=== PATIENT | male | born 1960 | race Caucasian/White ===

== ENCOUNTER 2025-02-03 15:44 | Inpatient (IN) | payer MEDICARE, OTHER ==
[~2025-02-03] VITALS: Ht 162.6 cm; Wt 56.7 kg
[2025-02-03] MEDS ORDERED: CHLO25TA13 PO (16:16)
[2025-02-03 16:22] LABS: PLATELET COUNT (AUTO) 325 K/uL (150-450); RED BLOOD CELL COUNT(AUTO) 3.98 MIL/uL (4.5-6.0); RED CELL DISTRIBUTION WIDTH 14.7 % (11.5-15.0); WHITE BLOOD COUNT (AUTO) 5.1 K/uL (4.3-11.0)
[2025-02-03 16:27] LABS: CALCIUM, SERUM 9.0 mg/dL (8.5-10.1); CREATININE 1.0 mg/dL (0.6-1.3); SODIUM SERUM 140 mmol/L (136-145); UREA NITROGEN, BLOOD 18 mg/dL (7-18)
[2025-02-03 16:34] LABS: ASPARTATE AMINOTRANSFERASE 21 U/L (15-37); TOTAL PROTEIN, SERUM 6.9 g/dL (6.4-8.2)
[2025-02-03 16:48] LABS: ALCOHOL, BLOOD < 3 mg/dL (0-10)
[2025-02-03 18:41] LABS: APPEARANCE,URINE CLOUDY (CLEAR); BLOOD, URINE NEGATIVE Ery/uL (NEGATIVE); LEUKOCYTE ESTERASE ,URINE 3+ (NEGATIVE); NITRITE, URINE POSITIVE (NEGATIVE); UGLUCOSE NEGATIVE (NEGATIVE)
[2025-02-03 18:50] LABS: BARBITURATE, URINE NEGATIVE (NEGATIVE); BENZODIAZEPINE, URINE NEGATIVE (NEGATIVE); CANNABINOID, URINE NEGATIVE (NEGATIVE); COCCAINE, URINE NEGATIVE (NEGATIVE); OPIATE, URINE NEGATIVE (NEGATIVE)
[2025-02-03 18:57] LABS: ADD URINE CULTURE YES
[2025-02-03 18:58] LABS: SQUAMOUS EPITHELIAL CELL,UR 0-2 /HPF (None Seen); URINE AMORPHOUS URATE Moderate /HPF (None Seen)
[2025-02-03 18:59] LABS: AMPHETAMINE, URINE POSITIVE (NEGATIVE)
[2025-02-03] MEDS ORDERED: CIPR500S2 PO (22:28)
[2025-02-03] MEDS ORDERED: CLOT15CR27 TP (22:29)
[2025-02-03] MEDS ORDERED: TEMAZEPAM 7.5 MG CAPSULE PO PRN (22:30)
[2025-02-03] MEDS ORDERED: MAGNESIUM HYDROXIDE 30 ML UDC PO PRN (22:30)
[2025-02-03] MEDS ORDERED: MAG HYDROX/AL HYDROX/SIMETH 30 ML UDC PO PRN (22:30)
[2025-02-03] MEDS ORDERED: LORAZEPAM 1 MG TABLET PO PRN (22:30)
[2025-02-03] MEDS ORDERED: FOLI0.4T6 PO (22:30)
[2025-02-03] MEDS ORDERED: MULT-1119 PO (22:31)
[2025-02-03] MEDS ORDERED: LORA-259 PO (22:31)
[2025-02-03] MEDS ORDERED: RISP1TAB97 PO (22:32)
[2025-02-03] MEDS ORDERED: THIA100T74 PO (22:33)
[2025-02-03] MEDS ORDERED: TRIA60LO8 TP (22:34)
[2025-02-03] MEDS: BLOOD SUGAR DIAGNOSTIC 1 EACH STRIP IN ONE (22:50)
[2025-02-03 23:41] VITALS: BP 123/69; TEMP 98; O2SAT 98
[2025-02-04 08:00] VITALS: BP 119/72; TEMP 98.2; O2SAT 97
[2025-02-04] MEDS: FOLIC ACID 1 MG TABLET PO SCH (08:14)
[2025-02-04] MEDS: MULTIVIT W/MINERALS 1 TAB TABLET PO SCH (08:14)
[2025-02-04] MEDS: NICOTINE PATCH (21MG) 21 MG PATCH.TD24 TD SCH (08:14)
[2025-02-04] MEDS: THIAMINE HCL 100 MG TABLET PO SCH (08:14)
[2025-02-04] MEDS: CEPHALEXIN MONOHYDRATE 500 MG CAPSULE PO SCH (10:39)
[2025-02-04 16:00] VITALS: BP 109/62; TEMP 97.5; O2SAT 100
[2025-02-04] MEDS ORDERED: HYDROCORTISONE 1% CREAM 28.35 GM TUBE TP PRN ×2 (17:00→19:00)
[2025-02-04 19:50] VITALS: BP 128/71; TEMP 98.2; O2SAT 99
[2025-02-05 08:02] VITALS: BP 106/53; TEMP 97.9; O2SAT 98
[2025-02-05 08:59] LABS: CALCIUM, SERUM 8.8 mg/dL (8.5-10.1); CREATININE 0.9 mg/dL (0.6-1.3); SODIUM SERUM 137.0 mmol/L (136-145); UREA NITROGEN, BLOOD 25.0 mg/dL (7-18)
[2025-02-05 09:36] LABS: PLATELET COUNT (AUTO) 337 K/uL (150-450); RED BLOOD CELL COUNT(AUTO) 4.44 MIL/uL (4.5-6.0); RED CELL DISTRIBUTION WIDTH 14.3 % (11.5-15.0); WHITE BLOOD COUNT (AUTO) 8.1 K/uL (4.3-11.0)
[2025-02-05 12:09] LABS: LDL 123.0 mg/dL (0-99)
[2025-02-05 13:41] LABS: EOSINOPHILS % (MANUAL) 11 % (0-4); LYMPHOCYTES % (MANUAL) 14 % (16-48); MONOCYTES % (MANUAL) 3 % (0-11.0); NEUTROPHILS % (MANUAL) 72 (42-76); PLATELET ESTIMATE ADEQUATE
[2025-02-05 15:55] VITALS: BP 124/67; TEMP 97.3; O2SAT 97
[2025-02-05 20:36] VITALS: BP 124/67; TEMP 97.5; O2SAT 98
[2025-02-06 08:00] VITALS: BP 134/76; TEMP 98.8; O2SAT 98
[2025-02-06] MEDS: HYDROCORTISONE 1% CREAM 28.35 GM TUBE TP PRN (10:09)
[2025-02-06 16:00] VITALS: BP 119/74; TEMP 98; O2SAT 98
[2025-02-06 20:06] VITALS: BP 122/69; TEMP 98; O2SAT 98
[2025-02-06] MEDS: QUETIAPINE FUMARATE 25 MG TABLET PO SCH (21:14)
[2025-02-07 08:28] VITALS: BP 118/72; TEMP 98; O2SAT 100
[2025-02-07] MEDS: QUETIAPINE FUMARATE 25 MG TABLET PO SCH (08:46)
[2025-02-07] MEDS: IVERMECTIN 3 MG TABLET PO ONE (10:27)
[2025-02-07] MEDS: PERMETHRIN 5% CRM 60 GM TUBE TP ONE (10:27)
[2025-02-07 16:00] VITALS: BP 117/70; TEMP 97.8; O2SAT 97
[2025-02-07 20:24] VITALS: BP 120/67; TEMP 97.8; O2SAT 97
[2025-02-08 08:34] VITALS: BP 116/73; TEMP 97.1; O2SAT 99
[2025-02-08 16:00] VITALS: BP 119/79; TEMP 97.7; O2SAT 95
[2025-02-08 19:57] VITALS: BP 123/96; TEMP 98.2; O2SAT 97
[2025-02-09 08:00] VITALS: BP 137/85; TEMP 97.8; O2SAT 99
[2025-02-09 16:00] VITALS: BP 108/85; TEMP 98.6; O2SAT 98
[2025-02-09 20:03] VITALS: BP 114/71; TEMP 98.3; O2SAT 98
[2025-02-10 08:00] VITALS: BP_SYST 118; BP_SYST 119; BP_DIAS 75; BP_DIAS 87; TEMP 97.7; TEMP 98.1; O2SAT 96; O2SAT 98
[2025-02-10] MEDS: QUETIAPINE FUMARATE 25 MG TABLET PO SCH (08:23)
[2025-02-10] MEDS: LORAZEPAM 1 MG TABLET PO PRN (13:40)
[2025-02-10 16:00] VITALS: BP 136/70; TEMP 97.7; O2SAT 98
[2025-02-10 20:45] VITALS: BP 109/87; TEMP 98.3; O2SAT 98
[2025-02-11 08:00] VITALS: BP 131/83; TEMP 98.1; O2SAT 100
[2025-02-11 16:00] VITALS: BP 123/73; TEMP 97.5; O2SAT 98
[2025-02-11 20:21] VITALS: BP 139/78; TEMP 97.9; O2SAT 98
[2025-02-12 08:04] VITALS: BP 150/74; TEMP 97.8; O2SAT 98
[2025-02-12 16:10] VITALS: BP 122/76; TEMP 97.8; O2SAT 98
[2025-02-12 20:55] VITALS: BP 130/77; TEMP 97.9; O2SAT 99
[2025-02-12] MEDS: QUETIAPINE FUMARATE 25 MG TABLET PO SCH (21:29)
[2025-02-13 08:00] VITALS: BP 119/73; TEMP 98; O2SAT 99
[2025-02-13 16:00] VITALS: BP 129/78; TEMP 98.2; O2SAT 98
[2025-02-13] MEDS: ACETAMINOPHEN 325 MG TABLET PO PRN (20:23)
[2025-02-13] MEDS: TEMAZEPAM 7.5 MG CAPSULE PO PRN (20:23)
[2025-02-13 20:26] VITALS: BP 130/66; TEMP 97.9; O2SAT 98
[2025-02-14 08:00] VITALS: BP 134/68; TEMP 97.8; O2SAT 100
[2025-02-14 16:00] VITALS: BP 126/79; TEMP 98; O2SAT 96
[2025-02-14] MEDS: PERMETHRIN 5% CRM 60 GM TUBE TP ONE (20:23)
[2025-02-14 20:53] VITALS: BP 135/72; TEMP 97.9; O2SAT 98
[2025-02-15 08:00] VITALS: BP 112/57; TEMP 97.9; O2SAT 99
== END 2025-02-15 13:25 | DRG 885 ==
LOC: ER 15:46 → GPS 17:25
PROVIDERS: ADMIT Psychiatry & Neurology Psychiatry; ATTEND Nurse Practitioner Acute Care
DX: F20.9 Schizophrenia, unspecified (principal); G92.8 Other toxic encephalopathy; E44.0 Moderate protein-calorie malnutrition; N39.0 Urinary tract infection, site not specified; B96.20 Unspecified Escherichia coli [E. coli] as the cause of diseases classified elsewhere; D64.9 Anemia, unspecified; F15.10 Other stimulant abuse, uncomplicated; F29 Unspecified psychosis not due to a substance or known physiological condition; Z59.02 Unsheltered homelessness; R45.851 Suicidal ideations; E88.09 Other disorders of plasma-protein metabolism, not elsewhere classified; Z20.822 Contact with and (suspected) exposure to COVID-19; Z91.199 Patient's noncompliance with other medical treatment and regimen due to unspecified reason; Z68.21 Body mass index [BMI] 21.0-21.9, adult
CPT/HCPCS: 36415; 80048-TC; 80061-TC; 80076-TC; 81001; 85025-TC; 85027-TC; 87081-TC; 87086-TC; 87186-TC; 97110-TC; 97116-TC; 97530-TC; G0480